=== PATIENT | female | born 1970 | race African-American/Black ===

== ENCOUNTER 2016-08-23 05:57 | Observation (INO) | payer OTHER ==
[~2016-08-23] VITALS: Ht 172.7 cm; Wt 78.7 kg
[~2016-08-23 05:57] MED LIST: AMLO5TAB2 PO
[2016-08-23] MEDS ORDERED: ceFAZolin 2 GM PREMIX 50 ML ONE (07:08)
[2016-08-23 07:15] VITALS: BP 124/86; PULSE 73; RESP 16; TEMP 99; O2SAT 98
[2016-08-23 07:15] LABS: AUTOMATED NEUTROPHIL # 5.5 TH/MM3 (1.8-7.7); BASOPHIL # 0.1 TH/MM3 (0-0.2); BASOPHIL % 0.9 % (0.0-2.0); EOSINOPHIL # 0.3 TH/MM3 (0-0.4); EOSINOPHIL % 2.9 % (0.0-4.0); HEMO FLAGS DIFF FINAL; LYMPH % 26.8 % (9.0-44.0); LYMPHOCYTE # 2.4 TH/MM3 (1.0-4.8); MEAN CELL VOLUME 83.9 FL (80.0-100.0); MEAN CORPUSCULAR HEMOGLOBIN 28.4 PG (27.0-34.0); MEAN CORPUSCULAR HGB CONC 33.8 % (32.0-36.0); MONO % 7.1 % (0.0-8.0); NEUT % 62.3 % (16.0-70.0); PLATELET COUNT 287 TH/MM3 (150-450); RED BLOOD COUNT 4.29 MIL/MM3 (4.00-5.30); WHITE BLOOD COUNT 8.9 TH/MM3 (4.0-11.0)
[2016-08-23 07:38] LABS: BETA HCG QUANT LESS THAN 1 MIU/ML (0-5)
[2016-08-23] MEDS ORDERED: fentaNYL CITRATE 250 MCG/5 ML AMP ONE (07:49)
[2016-08-23] MEDS ORDERED: HYDROmorphone HCL PF 2 MG/ML VIAL ONE (07:49)
[2016-08-23] MEDS ORDERED: FAMOTIDINE 20 MG/2 ML VIAL ONE (07:49)
[2016-08-23] MEDS ORDERED: ACETAMINOPHEN 1000 MG/100 ML VIAL IV ONE (07:49)
[2016-08-23] MEDS ORDERED: MIDAZOLAM HCL 2 MG/2 ML VIAL ONE (07:49)
[2016-08-23] MEDS ORDERED: BUPIVACAINE HCL PF 0.5% 30 ML VIAL INFIL ONE (08:29)
--- NOTE | 2016-08-23 08:59 | MH ---
cc: ANDERSON JIMENEZ M.D. DATE OF ADMISSION: 08/23/2016 HISTORY OF PRESENT ILLNESS The patient is a 45-year-old black female, G5, P3-0-2-3, who is currently on control pills to help control her cycles. She had an ablation in 2009 that worked well for a few years, about two years ago she started the pill, and now she is complaining of some breakthrough bleeding each month. We have tried to change the pill for her but without success. She would like to have definitive treatment for her dysfunctional bleeding with a hysterectomy. We talked about doing a laparoscopic hysterectomy if she is a good candidate. She is aware that we need to use a morcellator and she would like to proceed with that. She would also like to have her tubes removed but retain her ovaries. She has no other complaints at this time. PAST MEDICAL HISTORY Hypertension. PAST SURGICAL HISTORY 1. Cholecystectomy. 2. D&C. MEDICATIONS Amlodipine. ALLERGIES None. SOCIAL HISTORY No tobacco, alcohol or drug use. She is and lives with her family. FAMILY HISTORY Noncontributory. [employer]ILRO[employer] HISTORY No abnormal Pap smears. No history of STDs. OB HISTORY Three vaginal deliveries and two miscarriages. PHYSICAL EXAMINATION VITAL SIGNS: Weight 155, height 5 feet 7 inches. Blood pressure 118/80, pulse 70. BREASTS: Without masses, nodes or discharge. CHEST: Clear to auscultation bilaterally. CARDIAC: Regular rate and rhythm without murmur, rub or gallop. ABDOMEN: Soft, nontender, nondistended. No hepatosplenomegaly. No CVA tenderness. No hernias. PELVIC: Normal external female genitalia without lesions. Vaginal vault without lesions. Cervix without lesions. Uterus palpates normal size. No adnexal masses. ASSESSMENT AND PLAN Recurrent dysfunctional bleeding refractory to surgical and medical management. Plan will be for a LASH with bilateral salpingectomies. MD LIANNE Murillo/BT /10:13 PM /8:49 AM
[2016-08-23] MEDS ORDERED: SODIUM CHLORIDE 0.9% FLUSH 5 ML FLUSH FLUSH PRN (09:45)
[2016-08-23] MEDS ORDERED: LACTATED RINGER'S 1000 ML INJ 1,000 ML IV SCH (09:45)
[2016-08-23] MEDS ORDERED: DO NOT ADM ANY ANTICOAGULANT DRUGS XX PRN (09:55)
[2016-08-23] MEDS ORDERED: oxyCODONE/ACETAMINOPHEN 5 MG/325 MG TAB PO PRN (10:00)
[2016-08-23] MEDS ORDERED: KETOROLAC TROMETHAMINE 30 MG/ML (IVP) VIAL IVP PRN (10:00)
[2016-08-23] MEDS ORDERED: ONDANSETRON HCL 4 MG/2 ML VIAL IVP PRN (10:00)
[2016-08-23] MEDS ORDERED: HYDROmorphone HCL PF 1 MG/ML VIAL IVP PRN (10:00)
[2016-08-23] MEDS ORDERED: *HYDROmorphone PF 1 MG VIAL PERIprocedural Use ONLY ONE (10:05)
[2016-08-23] MEDS ORDERED: *morphine SULFATE 8 MG/ML PERIprocedure ONLY ONE (10:24)
[2016-08-23] MEDS ORDERED: *RESP: ALBUTEROL 2.5 MG/3 ML NEB (PRN) PERIprocedural Use ONLY NEB ONE (11:30)
[2016-08-23] MEDS ORDERED: LACTATED RINGER'S 1000 ML INJ 1,000 ML IV ONE (12:00)
[2016-08-23] MEDS ORDERED: NEOSTIGMINE 3 MG/3 ML SYR IV ONE (12:00)
[2016-08-23] MEDS ORDERED: PROPOFOL 200 MG/20 ML AMP IV ONE (12:00)
[2016-08-23] MEDS ORDERED: KETOROLAC TROMETHAMINE 60 MG/2 ML (IM) VIAL IM ONE (12:00)
[2016-08-23] MEDS ORDERED: ONDANSETRON HCL 4 MG/2 ML VIAL IV PUSH ONE (12:00)
[2016-08-23 15:38] VITALS: BP 115/75; PULSE 82; RESP 16; TEMP 97.8
[2016-08-23 20:00] VITALS: BP 120/78; PULSE 87; RESP 18; TEMP 98.3; O2SAT 97
[2016-08-23] MEDS ORDERED: SODIUM CHLORIDE 0.9% FLUSH 5 ML FLUSH FLUSH SCH (21:00)
[2016-08-23] MEDS: oxyCODONE/ACETAMINOPHEN 5 MG/325 MG TAB PO PRN (22:45)
[2016-08-24] VITALS: BP 125/80; PULSE 74; RESP 16; TEMP 98.2; O2SAT 97
[2016-08-24 04:00] VITALS: BP 133/18; PULSE 72; RESP 16; TEMP 98.3; O2SAT 97
[2016-08-24] MEDS: oxyCODONE/ACETAMINOPHEN 5 MG/325 MG TAB PO PRN ×2 (04:02→10:35)
[2016-08-24 06:24] LABS: AUTOMATED NEUTROPHIL # 10.5 TH/MM3 (1.8-7.7); BASOPHIL % 0.3 % (0.0-2.0); EOSINOPHIL % 0.2 % (0.0-4.0); HEMATOCRIT 33.4 % (35.0-46.0); HEMO FLAGS DIFF FINAL; LYMPH % 13.7 % (9.0-44.0); LYMPHOCYTE # 1.9 TH/MM3 (1.0-4.8); MEAN CORPUSCULAR HEMOGLOBIN 27.9 PG (27.0-34.0); MEAN CORPUSCULAR HGB CONC 32.8 % (32.0-36.0); MONO % 8.3 % (0.0-8.0); NEUT % 77.5 % (16.0-70.0); PLATELET COUNT 287 TH/MM3 (150-450); RED BLOOD COUNT 3.93 MIL/MM3 (4.00-5.30); WHITE BLOOD COUNT 13.6 TH/MM3 (4.0-11.0)
[2016-08-24 07:45] VITALS: BP 138/79; PULSE 68; RESP 18; TEMP 98.9
--- NOTE | 2016-08-24 22:12 | MP ---
cc: ANDERSON JIMENEZ M.D. DATE OF SURGERY: 08/23/2016 PREOPERATIVE DIAGNOSIS: Dysfunctional uterine bleeding refractory to medical and surgical management. POSTOPERATIVE DIAGNOSIS: Dysfunctional uterine bleeding refractory to medical and surgical management. PROCEDURE PERFORMED: Laparoscopic assisted supracervical hysterectomy with bilateral salpingectomies. OPERATING SURGEON Dr. Anderson Jimenez. ANESTHESIA: General endotracheal anesthesia BLOOD LOSS: 200 cc FINDINGS AT SURGERY: Normal-appearing uterus, slightly boggy in nature, normal appearing tubes and ovaries bilaterally, small amount of adhesions of the anterior uterine surface to the bladder and then to the anterior abdominal wall. COMPLICATIONS: None. PROCEDURE IN DETAIL: After proper consents had been obtained, the patient was taken to the operating room where general endotracheal anesthesia was applied. She was then placed in the dorsal position, sterilely prepped and draped and Weeks catheter was placed. At this time, we injected lidocaine with epinephrine solution in the umbilicus. I made a 5-mm incision in the umbilicus and placed the trocar under direct visualization through the abdominal pelvic cavity. I then made a 1-cm incision in the left lower quadrant mid axillary line and placed a 10/12 trocar site there and then another trocar site in the right lower quadrant mid axillary line in a 5-mm length. At this time we were then able to see the uterus was completely mobile. It did have an anterior abdominal wall adhesion to the anterior surface. Left tube and ovary looked normal. Right tube and ovary looked normal. We went ahead and grabbed the left tube and then took that off of the ovary using the Enseal device came through the broad ligament removing the tube. We then came across the round ligament on the left side, came across the utero-ovarian ligament, skeletonize the uterine vessels developed bladder flap anteriorly from the left side and then came across the uterine vessels without difficulty. Excellent hemostasis noted. I then went ahead and turned my attention to the anterior abdominal wall adhesion and took that down from the anterior abdominal wall and then continued developing the bladder flap anteriorly until we were able to push the adhesion down which it came down nicely. I then turned my attention to the right side. I the tube from the ovary using the Enseal, came through the broad ligament with the Enseal across the round ligament, the utero-ovarian ligament, skeletonized uterine vessels on the right side, finished developing the bladder flap on the right side and then came across the uterine vessels. At this time I switched the harmonic scalpel and came across the cervix about one-third [address] the way down amputating the uterus. At this time we went ahead and placed the morcellator through the 1012 site and we morcellated out the uterus and the tubes. We picked up any remaining tissue without difficulty. We irrigated the abdomen copiously. Excellent hemostasis was noted. We overlaid the cervical stump with a piece of Interceed. I then went ahead and closed the 1012 site using the Luis E-Rosio device and a 0 Vicryl suture with excellent closure noted. We then closed the skin using 4-0 Monocryl in a subcu fashion with excellent closure noted. All counts were correct and the patient was stable to the Recovery Room. MD LIANNE Murillo/MIKAELA /1:45 PM /10:01 PM
== END 2016-08-24 15:59 | disposition home or self-care (01) ==
LOC: HSDC 05:57 → HSDI 09:48 → H1EA 15:20
PROVIDERS: ADMIT Obstetrics & Gynecology; ATTEND Obstetrics & Gynecology
DX: D25.9 Leiomyoma of uterus, unspecified (principal); N80.0 Endometriosis of uterus; N93.8 Other specified abnormal uterine and vaginal bleeding; N70.11 Chronic salpingitis; I10 Essential (primary) hypertension
CPT/HCPCS: 00840; 58542; 84702; 85025; 86850; 86900; 86901; 88307; 94664; C1765; G0378; J0131; J0690; J1170; J1885; J2250; J2270; J2405; J2710; J3010; J7120; J7613